=== PATIENT | male | born 1960 | race Caucasian/White ===

== ENCOUNTER → 2019-01-26 | Outpatient (CLI) | payer OTHER ==
[~2019-01-26] MED LIST: ATEN100T PO; CANA300T PO; CLON0.1T PO; HYDR12.572 PO; LOSA100T14 PO
--- NOTE | 2019-01-26 14:29 | CARD ---
MR#: [id number] Date of Study: 01/26/2019 Ordering Physician: ANA SHANKS, Referring Physician: ANA SHANKS, Tech: APPROVED REPORT EXAM: Two-dimensional and M-mode echocardiogram with Doppler and color Doppler. INDICATION Dyspnea 2D DIMENSIONS RVDd2.7 (2.9-3.5cm)Left Atrium(2D)2.9 (1.6-4.0cm) IVSd1.2 (0.7-1.1cm)Aortic Root(2D)3.2 (2.0-3.7cm) LVDd5.2 (3.9-5.9cm)LVOT Diameter2.1 (1.8-2.4cm) PWd1.0 (0.7-1.1cm)LVDs2.5 (2.5-4.0cm) FS (%) 52.9 %SV110.5 ml LVEF(%)83.6 (>50%) Aortic Valve AoV Peak Chidi.154.0cm/sAoV VTI34.9cm AO Peak GR.9.5mmHgLVOT Peak Chidi.107.5cm/s LVOT VTI 22.11cmAO Mean GR.5mmHg JASON (VMAX)2.40eh0DVY (VTI)2.25cm2 Mitral Valve MV E Zpmpyvhd55.1cm/sMV DECEL LGET703ow MV A Wtmgwuqj62.9cm/sE/A Ratio0.7 Pulmonary Valve PV Peak Uskuvubl21.0cm/sPV Peak Grad.4mmHg Tricuspid Valve TR P. Djhoptsh618yv/sRAP FYKSCJYB5iiGy TR Peak Gr.24dsVsQNJY76ccLg Pulmonary Vein S1 Pdbncvck80.3cm/sD2 Egrxdury69.4cm/s LEFT VENTRICLE The left ventricle is normal size. There is mild concentric left ventricular hypertrophy. The left ve ntricular systolic function is normal. The Ejection Fraction is 55-60%. There is normal LV segmental wall motion. Transmitral Doppler flow pattern is Grade I-abnormal relaxation pattern. RIGHT VENTRICLE The right ventricle is normal size. There is normal right ventricular wall thickness. The right ventr icular systolic function is normal. ATRIA The left atrium size is normal. The right atrium size is normal. The interatrial septum is intact wit h no evidence for an atrial septal defect or patent foramen ovale as noted on 2-D or Doppler imaging. AORTIC VALVE The aortic valve is normal in structure and function. Doppler and Color Flow revealed no significant aortic regurgitation. There is no significant aortic valvular stenosis. MITRAL VALVE The mitral valve is normal in structure and function. There is no evidence of mitral valve prolapse. There is no mitral valve stenosis. Doppler and Color Flow revealed no mitral valve regurgitation note d. TRICUSPID VALVE The tricuspid valve is normal in structure and function. Doppler and Color Flow revealed trace tricus pid regurgitation with an estimated PAP of 21 mmHg. There is no tricuspid valve stenosis. PULMONIC VALVE The pulmonic valve is not well visualized. Doppler and Color Flow revealed no pulmonic valvular regur gitation. GREAT VESSELS The aortic root is normal in size. The IVC is normal in size and collapses >50% with inspiration. PERICARDIAL EFFUSION There is no evidence of significant pericardial effusion. Critical Notification Critical Value: No <Conclusion> The left ventricular systolic function is normal. The Ejection Fraction is 55-60%. There is normal LV segmental wall motion. Transmitral Doppler flow pattern is Grade I-abnormal relaxation pattern. Trace tricuspid regurgitation with an estimated PAP of 21 mmHg. There is no evidence of significant pericardial effusion. Signed by : Mich Dick, Electronically Approved : 01/26/2019 14:28:45
== END | disposition home or self-care (01) ==
LOC: ECHO 13:08
PROVIDERS: ATTEND Internal Medicine Cardiovascular Disease
DX: I10 Essential (primary) hypertension (principal)
CPT/HCPCS: 93306

== ENCOUNTER → 2019-01-28 | Outpatient (CLI) | payer OTHER ==
[~2019-01-28] MED LIST changes: +REGADENOSON 0.4 MG/5 ML DISP.SYRIN. IV ONE
--- NOTE | 2019-01-28 12:36 | RAD ---
MR#: [id number] Date of Study: 01/28/2019 Ordering Physician: CONI DICK Referring Physician: VENKATESH TREADWELL Tech: RT Nela Valles) (N) APPROVED REPORT Test Type: Pharmacological Stress Nurse/Tech: RT Reena (Emigdio) (N) Test Indications: abnormal EKG Cardiac History: none Medications: see EHR Medical History: hypertension, diabetic Resting ECG: sinus rythm Resting Heart Rate: 51 bpm Resting Blood Pressure: 125/84mmHg Pretest Chest Pain: None Nurse/Tech Notes Consent: The procedure was explained to the patient in lay terms. Informed consent was witnessed. Aleksey eout was entered into [employer]. History and Stress Test performed by RT Reena (R) (N) Pharm. Details Pharmacologic stress testing was performed using 0.4mg per 5ml of regadenoson given intravenously ove r 7-10 seconds. POST EXERCISE Reason for Termination: Infusion complete Max HR: 86 bpm Max Blood Pressure: 128/76mmHg INTERPRETATION Stress EKG Conclusion: Baseline EKG showed sinus rhythm. No ischemic changes at peak stress. No arr hythmias. Imaging Protocol IMAGE PROTOCOL: Rest Tc-99m/stress Tc-99m 1 day Rest: Stress: Viability: Radiopharm.Tc99m QmqukmexbTa72l Sestamibi Qzgg17hFr 31mCi Duration 15min. 10min. Img Date 01/28/2019 01/28/2019 Inj-Img Fgma63oyi. 60min. Rest Admin Site:IV - Right AntecubitalAdministrator: RT Tammy (R)(N) Stress Admin Site: IV - Right AntecubitalAdministrator: RT Tammy (R)(N) STRESS DATA End Diast. Vol.111.0mlAv. Heart Rate65.0bpm End Syst. Vol.34.0mlCO Index BSA0.0L/min Myocardial Phim191.0gEject. Nbzcnpzw35.0% Stress Rates Pk. Fill Rate2.33EDV/secLVtime Pk. Fill 257.93msec Pk. Empty Rate3.83ESV/secLVtime Pk. Msckx489.62msec 1/3 Pk. Fill1.43EDV/sec Stress Scores Regional WT0.00Summed WT0.00 Regional WM0.00Summed WM0.00 Study quality was good. Left Ventricular size was Normal at Rest and Stress. Lung uptake was . Left Ventricular ejection fraction is 67%. The rest and stress images show normal perfusion, normal contraction and thickening. LV Perf. Quant 17 Seg. SSS2.00 17 Seg. SRS4.00 17 Seg. SDS0.00 Stress Defect Extent (% LAD)0.00Rest Defect Extent (% LAD)9.40Rev. Defect Extent (% LAD)0.00 Stress Defect Extent (% LCX) 6.30Rest Defect Extent (% LCX)0.00Rev. Defect Extent (% LCX)3.80 Stress Defect Extent (% RCA)2.20Rest Defect Extent (% RCA)0.00Rev. Defect Extent (% RCA)1.10 Stress Defect Extent (% GENESIS)3.90Rest Defect Extent (% GENESIS)7.40Rev. Defect Extent (% GENESIS)1.30 Conclusion 1. Regadenoson cardioisotope stress test did not show any evidence of ischemia or infarct. 2. Normal left ventricular systolic function with ejection fraction calculated at 67%. 3. Low risk for cardiac events. Signed by : Coni Dick, Electronically Approved : 01/28/2019 12:35:43
== END | disposition home or self-care (01) ==
LOC: NM 08:14 → EDUNIT# 09:00
PROVIDERS: ATTEND Internal Medicine Cardiovascular Disease
DX: R94.31 Abnormal electrocardiogram [ECG] [EKG] (principal); I10 Essential (primary) hypertension; E11.9 Type 2 diabetes mellitus without complications; Z88.0 Allergy status to penicillin
CPT/HCPCS: 78452; 93017; A9500; J2785